=== PATIENT | male | born 1965 | race Caucasian/White ===

== ENCOUNTER 2024-11-02 05:18 | Day surgery (SDC) | payer OTHER ==
--- NOTE | 2024-10-26 12:06 | ELECTROCARDIOGRAPH REPORT ---
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 MARCELLA Casiano Measurements Intervals [place] Rate: 70 P: 0 WA: 185 QRS: 43 QRSD: 90 T: 16 QT: 348 QTc: 376 Interpretive Statements Sinus rhythm RSR' in V1 or V2, probably normal variant Electronically Signed On 10-26-2024 18:33:[address] MARCELLA Casiano Please click the below link to view image of tracing.
[2024-10-26 12:17] LABS: BASOPHILS % (AUTO) 0.5 % (0-1); EOSINOPHILS # (AUTO) 0.1 X10'3 (0-0.9); EOSINOPHILS % (AUTO) 1.6 % (0-6); LYMPHOCYTES # (AUTO) 2.8 X10'3 (1.1-4.8); MEAN CORPUSCULAR HEMOGLOBIN 33.3 PG (27.0-31.0); MEAN CORPUSCULAR HGB CONC 34.3 g/dL (33.0-36.5); MEAN CORPUSCULAR VOLUME 97.1 FL (78-98); MEAN PLATELET VOLUME 9.3 FL (7.4-10.4); MONOCYTES # (AUTO) 1.2 X10'3 (0-0.9); NEUTROPHILS # (AUTO) 4.7 X10'3 (1.8-7.7); NEUTROPHILS % (AUTO) 52.9 % (42-75); PRE OP HEMATOCRIT 43.8 % (42.0-52.0); PRE OP PLATELET COUNT 203 X10'3 (140-440); PRE OP WHITE BLOOD COUNT 8.9 10'3 (4.8-10.8); RED BLOOD COUNT 4.51 X10'6 (4.70-6.10); RED CELL DISTRIBUTION WIDTH 13.5 % (11.5-14.5)
[2024-10-26 12:20] LABS: ALBUMIN 3.5 G/DL (3.4-5.0); ALBUMIN/GLOBULIN RATIO 0.9 (1.1-1.5); ALKALINE PHOSPHATASE 92 IU/L (46-116); BLOOD UREA NITROGEN 17 MG/DL (7-18); CALCIUM 8.2 MG/DL (8.5-10.1); CHLORIDE 105 MMOL/L (99-107); CREATININE 0.85 MG/DL (0.60-1.10); PRE OP ALT 53 U/L (30-65); PRE OP ANION GAP 8 (8-16); PRE OP AST 33 U/L (10-37); PRE OP BILIRUB, TOTAL 0.6 MG/DL (0.0-1.0); PRE OP GLUCOSE 104 MG/DL (70-104); PRE OP POTASSIUM 4.1 MMOL/L (3.4-5.1); PRE OP SODIUM 139 MMOL/L (135-145); TOTAL PROTEIN 7.2 G/DL (6.4-8.2); eGFR > 90 ML/MIN
[~2024-11-02] VITALS: Ht 167.6 cm; Wt 108.8 kg
[2024-11-02] VITALS (17 sets, daily range): BP systolic 124–154; BP diastolic 76–95; PULSE 68–89; RESP 11–17; TEMP 97.1; O2SAT 96–100
[~2024-11-02 05:18] MED LIST: NO HOME MEDS
[2024-11-02] MEDS: famotidine 20mg tablet PO ONE (06:19)
[2024-11-02] MEDS: ringers solution, lacted 1,000 ML IV SCH (06:19)
[2024-11-02] MEDS: ceFAZolin 2gm in dextrose, iso 50 ML IV ONE (06:20)
[2024-11-02] MEDS ORDERED: LIDOcaine 1% 30ml preserv. free vial ONE (06:59)
[2024-11-02] MEDS ORDERED: BUPIVAcaine 2.5mg/ml inj 50ml vial (contains preservative) ONE (07:00)
[2024-11-02] MEDS ORDERED: BUPIVACAINE liposomal/PF 13.3 MG/ML 10mL vial IM ONE (07:03)
[2024-11-02] MEDS ORDERED: BUPIVAcaine/PF 2.5mg/ml (0.25%) 10ml vial ONE (07:03)
[2024-11-02] MEDS ORDERED: acetaminophen 1000 MG/100ml vial IV ONE (07:22)
[2024-11-02] MEDS ORDERED: fentaNYL/PF 50MCG/1 ML 2ML syringe ONE (07:33)
[2024-11-02] MEDS ORDERED: midazolam 1 mg/ML 2ml injection ONE (07:33)
[2024-11-02] MEDS ORDERED: rocuronium 10mg/ml inj IV ONE (07:37)
[2024-11-02] MEDS ORDERED: LIDOcaine 2% (20mg/ml) 5ml vial ONE (07:38)
[2024-11-02] MEDS ORDERED: ondansetron/PF 4mg/2ml inj ONE (07:38)
[2024-11-02] MEDS ORDERED: propofol inj 20 ML IV ONE (07:38)
[2024-11-02] MEDS ORDERED: dexamethasone sod phosphate 4mg/ml inj. ONE (07:38)
[2024-11-02] MEDS: BUPIVAcaine/PF 2.5 mg/ml (0.25%) 30ml vial IJ ONE (08:08)
[2024-11-02] MEDS ORDERED: morphine 2 MG/ML inj. syringe IV PRN (08:15)
[2024-11-02] MEDS ORDERED: ringers solution, lacted 1,000 ML IV SCH (08:15)
[2024-11-02] MEDS ORDERED: proCHLORperazine 10 MG/2 ml inj IV PRN (08:15)
[2024-11-02] MEDS ORDERED: ondansetron/PF 4mg/2ml inj IV PRN (08:15)
[2024-11-02] MEDS ORDERED: labetalol 20mg/4ml (5mg/ml) syringe IV PRN (08:15)
[2024-11-02] MEDS ORDERED: meperidine/PF 25mg/ml syringe IV PRN ×3 (08:15)
[2024-11-02] MEDS ORDERED: enalaprilat 1.25mg/ml 2ml vial IV PRN (08:15)
[2024-11-02] MEDS ORDERED: neostigmine methylsulfate 1 MG/ML 10ml vial ONE (08:44)
[2024-11-02] MEDS ORDERED: glycopyrrolate 0.2mg/ml inj ONE (08:44)
--- NOTE | 2024-11-02 09:12 | OPERATIVE REPORT ---
Operative Report Providers to CC: JAMIR BRUNO MD ~ Date of Procedure: Nov 02, 2024 Pre-Operative Diagnosis: Umbilical hernia Post-Operative Diagnosis SAME as PRE-Op Procedure Performed Robotic assisted, laparoscopic 2 cm umbilical hernia repair with mesh Bilateral transversus abdominis plane nerve blocks by injection using 266 mg of Exparel Surgeon: Jamir Bruno MD FACS Company Accountant None Anesthesiologist: Noam Heaton Type of Anesthesia: General Findings: 2 cm fascial defect at the level of the umbilicus Wound class I Complications None Prosthetics\Implants used: 12 cm diameter coated polyester mesh Estimated Blood Loss: Minimal Specimen Removed: None Description of Procedure: Patient was brought to the operating room and identified by the nursing staff and the attending physician. Patient was placed supine and a general anesthesia was induced. Preoperative antibiotics were given. The abdomen was prepped and draped in the standard sterile fashion. Through a left subcostal stab incision the abdomen was accessed with a Veress needle technique. Abdomen was insufflated without incident. The incision was lengthened to accommodate a 12 mm optical trocar and the abdomen was entered under laparoscopic visualization. The abdomen was surveyed laparoscopically. There was an obvious midline fascial defect with herniated omentum. This was not reducible with external compression. Under laparoscopic visualization, robotic trochars were placed in the left lateral and left lower quadrant. The da Lucian robotic arm was docked to the patient and instruments guided intra-abdominally under laparoscopic visualization. Gentle traction on the herniated omentum and some mobilization using electrocautery reduced the herniated intra-abdominal contents. Preperitoneal plane was developed just lateral to the umbilicus. Dissection was carried at towards the midline until the fascial defect was encountered. Preperitoneal fat was mobilized. This was continued across the posterior rectus sheath on the opposite side. Herniated contents and hernia sac were left attached to the peritoneum and mobilized with the infraumbilical fat pad inferiorly, creating adequate space for mesh deployment against the posterior rectus sheath. Fascial defect(s) were then reapproximated with running, nonabsorbable, 0V lock suture. Good fascial apposition was obtained without significant tension. A coated polyester mesh was then fixed to the anterior abdominal wall with running, absorbable, 2/0, V lock suture. Mesh laid without wrinkles or folds. The mesh measured 12 cm in diameter. The da Lucian instruments were then removed and the robot undocked from the patient. Bilateral transversus abdominis plane nerve blocks by injection were then placed under laparoscopic visualization using a combination of Marcaine and 266 mg of Exparel. The left subcostal trocar was removed and its fascia closed percutaneously with 0 Vicryl suture under laparoscopic visualization. Remaining trochars were removed after the abdomen was allowed to deflate. Skin was closed at all sites with 4-0 Monocryl sutures and dressed with sterile dressings. Patient was awakened and taken to the postanesthesia care unit in stable condition. Counts repoted as correct: Yes JAMIR BRUNO MD Nov 02, 2024 09:12
[2024-11-02] MEDS: morphine 4 MG/ML inj SYRINge IV PRN (09:41)
[2024-11-02] MEDS: oxyCODONE/APAP 5-325mg tablet PO PRN (10:44)
== END 2024-11-02 11:17 | disposition home or self-care (01) ==
LOC: PAS 05:18
PROVIDERS: ATTEND Surgery
DX: K42.9 Umbilical hernia without obstruction or gangrene (principal); G47.33 Obstructive sleep apnea (adult) (pediatric); Z98.890 Other specified postprocedural states; Z79.899 Other long term (current) drug therapy; Z87.891 Personal history of nicotine dependence; Z82.49 Family history of ischemic heart disease and other diseases of the circulatory system
CPT/HCPCS: 36415; 49591; 64488; 80053; 82948; 85025; 93005; C1781; J0131; J0666; J0690; J1100; J2003; J2250; J2270; J2405; J2704; J2710; J3010; J3490; J7030; J7120; Z7506; Z7508; Z7512; A4215; A4618